=== PATIENT | female | born 1980 | race Caucasian/White ===

== ENCOUNTER 2020-02-10 09:26 | Emergency (ER) | payer BC, SELFPAY ==
[2020-02-10 09:36] VITALS: BP 116/67; PULSE 68; RESP 16; TEMP 36.9; O2SAT 100; BMI 24.7
--- NOTE | 2020-02-10 10:01 | CT_ITS ---
EXAMINATION: CT HEAD WITHOUT CONTRAST CLINICAL INFORMATION: Right-sided headaches x1 year. Sinus pressure. COMPARISON: None TECHNIQUE: Contiguous axial imaging was performed from the skull base to vertex without intravenous administration of contrast. This CT examination was performed using dose optimization techniques as appropriate, variously including the following: *Automated exposure control *Adjustment of mA and/or kV according to patient size (this includes techniques or standardized protocols for targeted exams where dose is matched to indication/reason for exam; i.e. extremities or head) *Use of iterative reconstruction technique DLP: 627 mGy-cm FINDINGS: There is no evidence of acute intracranial hemorrhage or territorial infarction. No abnormal mass effect or midline shift is seen. Garcia to white matter differentiation is well preserved. No extra-axial fluid collections are identified. The ventricles are normal in size. There is no abnormal attenuation within the brain parenchyma. The osseous structures and soft tissues are normal. The mastoid air cells and visualized portions of the paranasal sinuses are well aerated. CT/CT head/brain wo con IMPRESSION: No acute intracranial process seen.
--- NOTE | 2020-02-10 10:03 | ED_ITS ---
HPI - Headache General Chief Complaint: Headache Stated Complaint: headache Time Seen by Provider: 02/10/20 09:54 Source: patient Mode of arrival: ambulatory History of Present Illness HPI Narrative: 39-year-old female with a past medical history of a root canal 1 month ago presented to ED complaining of continued right sided headache x1 year, worsening since most recent root canal, with associated right-sided jaw/facial/and sinus pain. Also reports intermittent visual changes when headache is intense. Reports saw her dentist recently who took x-rays, without abnormalities, and is finishing course of Zithromax today without improvement. Dentist sent patient to ED for MRI. Denies nausea/vomiting, head trauma, does not take anticoagulation, numbness/tingling, weakness, fever, CP/SOB MD elicited complaint: headache Location: right Related Data Previous Rx's Medication Instructions Recorded [id number]-[id number]-[id number] 1 cap PO Q4-6H PRN #14 cap 02/10/20 [Fioricet] Allergies Allergy/AdvReac Type Severity Reaction Status Date / Time mold [MOLD] Allergy Severe UNKNOWN Verified 02/10/20 09:39 pollen extracts [POLLEN] Allergy Severe ITCHING Verified 02/10/20 09:39 Sulfa (Sulfonamide Allergy Severe HIVES Verified 02/10/20 09:39 Antibiotics) [SULFA (SULFONAMIDE ANTIBIOTICS)] Review of Systems Review of Systems: Constitutional: No Weight loss, No Fever, No Chills ENT/Mouth: No Hearing loss, No Ear Pain, +Nasal Congestion, + Sinus Pain, No Hoarseness, No sore throat, No Swallowing Difficulty Eyes: +R Eye Pain, No Swelling, No Discharge, No Vision Changes at present Cardiovascular: No Chest Pain, No SOB Respiratory: No Cough, No Sputum, No Wheezing, No Smoke Exposure, No Dyspnea Gastrointestinal: No Nausea, No Vomiting, No Diarrhea, No Constipation, No Abdom inal pain Musculoskeletal: No joint pain, No Myalgias, No Joint Swelling Skin: No Skin Lesions, No rash Neuro: No Weakness, +R sided facial pain/intermittent numbness, No Paresthesias, No Loss of Consciousness, No Dizziness, + Headache Yes all other systems are reviewed and are negative Neurologic: Denies Sensory deficit (Neuro) [facility] Past Medical History Attestation statement: The following information was validated with the patient. Social History Social History Alcohol intake: never Smoked in Last 30 Days: No Use of substances other than those prescribed or required for medical reasons: No Advance Directives: No Advance Directives Information Provided: No Physical Exam Vital Signs: Vital Signs: Last Vital Signs Temp 98.0 F 02/10/20 11:26 Pulse 56 02/10/20 11:26 Resp 18 02/10/20 11:26 BP 98/61 02/10/20 11:26 Pulse Ox 99 02/10/20 11:26 Body Mass Index 24.7 Const: General: cooperative and healthy appearing Orientation/consciousness: patient oriented x3 Limitations: no limitations HENMT: Other: + right-sided TMJ/temporal tenderness Head: Yes normal to inspection Ears: hearing grossly normal bilaterally and TM's normal bilaterally General nose exam: Normal external nose present Face and sinus: Yes normal facial exam and Yes face symmetric Mouth: Normal oral and palatal mucosa present and moist mucous membranes Teeth and gingiva: dentition normal Throat: Yes posterior oropharynx normal and Yes uvula midline Eyes: General: appearance normal, both eyes and all related structures Pupils: Equal, round and reactive pupils present EOM: EOMs intact bilaterally Neck: Neck: Yes normal visual inspection, Yes full ROM and Yes no meningeal signs Resp: Effort & Inspection: normal respiratory effort Cardio: Rate: regular rate GI: Inspection: Yes normal to inspection Skin: Rashes: no rashes Wounds: no wounds Neuro: General: patient oriented x3, gait normal, tone normal, moves all ex tremities, no meningeal signs, no focal motor deficits and CN's II-XI intact bilaterally Cranial nerves: Yes Equal, round and reactive pupils present Cognition (Neuro): normal cognition Gait exam (Neuro): Normal gait present Motor exam (neuro): 5/5 motor strength present throughout Sensory Exam: No Sensory deficit (Neuro) Coordination: [id number] test normal Extrem: General: Yes normal to inspection Course Course Course Narrative: -labs and head CT unremarkable Patient refusing IV medications in the ED. Discussed with patient follow-up with her dentist/neurology/PCP for further workup outpatient. Worsening signs and symptoms and strict return precautions discussed. Patient verbalized understanding of feel safe for discharge home MDM - Headache MDM Narrative Medical decision making narrative: 39-year-old female with a past medical history of a root canal 1 month ago presented to ED complaining of continued right sided headache x1 year, worsening since most recent root canal, with associated right-sided jaw/facial/and sinus pain. On exam VSS, NAD/well- appearing, no focal neuro deficits, no signs of active infection. Likely migraine headache vs ? Root canal complication vs TMJ. Low concern for CVA/GCA Plan: Labs, head CT to rule out mass, symptomatic therapy, reassess Lab Data Result diagrams: 02/10/20 10:25 02/10/20 10:25 Labs: Lab Results 02/10/20 02/10/20 02/10/20 Range/Units 10:25 10:25 10:25 WBC 4.6 L (4.8-10.8) X10*3/uL RBC 4.39 (4.20-5.50) X10*6/uL Hgb 13.9 (12.0-16.0) g/dl Hct 41.8 (37-47) % MCV 95.2 (80-98) fL MCH 31.7 (27.0-33.0) pg MCHC 33.3 (31.0-35.0) g/dl RDW 11.5 (11.0-16.0) % Plt Count 187 (160-400) X10*3/uL MPV 10.8 (9.4-12.3) fL Immature Gran % (Auto) 0.0 (0.0-0.4) % Neut % (Auto) 54.8 (45-73) % Lymph % (Auto) 35.2 (20-40) % [place] % (Auto) 7.6 (2-11) % Eos % (Auto) 2.0 (0-4) % Baso % (Auto) 0.4 (0-2) % Lymph # (Auto) 1.6 (1.2-4.9) X10*3/uL [place] # (Auto) 0.4 (0.1-1.2) X10*3/uL Eos # (Auto) 0.1 (0.0-0.4) X10*3/uL Baso # (Auto) 0.0 (0.0-0.2) X10*3/uL Abs Immat Gran (auto) 0.00 (0.00-0.03) X10*3/uL Absolute Neuts (auto) 2.5 (2.0-8.3) X10*3/uL Absolute Nucleated RBC 0.000 (0.0-0.012) X10*3/uL Nucleated RBC % (auto) 0.0 (0.0-0.2) /100WBC Hold Blue Top SEE NOTE Sodium 139 (135-145) mmol/L Potassium 4.5 (3.3-5.1) mmol/l Chloride 104 (96-108) mmol/L Carbon Dioxide 28 (22-29) mmol/L Anion Gap 12 (12-20) BUN 15 (9-16) mg/dL Creatinine 0.84 (0.5-1.4) mg/dL Estim Creat Clear Calc 79.8 Estimated GFR > 60 Random Glucose 80 (60-115) mg/dL Calcium 8.9 (8.4-10.2) mg/dL Discharge Plan Discharge Clinical Impression: Headache Patient Disposition: Home, Self-Care Instructions: Acute Headache (ED) Additional Instructions: Your blood work and head CT were unremarkable today in the ED You to follow-up with your dentist and PCP for further workup outpatient You can also follow-up with a neurologist Care set is headache medication, take as needed If her symptoms persist or worsen, you have fever, constant worsening vision changes, nausea/vomiting, or weakness return to the ED Prescriptions: New riuhuqnyul-qgrzyhqigrcbl-mjnn [Fioricet] 50-300-40 mg capsule 1 cap PO Q4-6H PRN (Reason: pain) Qty: 14 RF: 0 Referrals: Mark Alberto MD [Physician] - 1 week Alejandra Gross MD [Primary Care Provider] - 2 days (And your dentist)
[2020-02-10] MEDS: Butalb/Acetamin/Caff 50/325/40 TABLET 1 TAB PO (10:30)
[2020-02-10 10:32] LABS: MANUAL DIFF FLAG NO
--- NOTE | 2020-02-10 10:32 | PC.NURSE ---
rn went to place iv for patient to receive meds/draw abs. pt stated she did not want iv, would like to just have labs drawn and take po meds. pa informed or above. ok for pt to just have lab work and take fiorocet po.
[2020-02-10 10:34] LABS: Basophils Percent Auto 0.4 % (0-2); Eosinophils Absolute Auto 0.1 X10*3/uL (0.0-0.4); Hematocrit 41.8 % (37-47); Hemoglobin 13.9 g/dl (12.0-16.0); Lymphocytes Absolute Auto 1.6 X10*3/uL (1.2-4.9); Lymphocytes Percent Auto 35.2 % (20-40); Mean Corpuscular HGB Conc 33.3 g/dl (31.0-35.0); Mean Corpuscular Hemoglobin 31.7 pg (27.0-33.0); Mean Corpuscular Volume 95.2 fL (80-98); Mean Platelet Volume 10.8 fL (9.4-12.3); Monocytes Absolute Auto 0.4 X10*3/uL (0.1-1.2); Monocytes Percent Auto 7.6 % (2-11); Neutrophils Absolute Auto 2.5 X10*3/uL (2.0-8.3); Neutrophils Percent Auto 54.8 % (45-73); Platelet Count 187 X10*3/uL (160-400); Red Blood Count 4.39 X10*6/uL (4.20-5.50); Red Cell Distribution Width 11.5 % (11.0-16.0); White Blood Count 4.6 X10*3/uL (4.8-10.8)
[2020-02-10 11:05] LABS: Anion Gap 12 (12-20); Blood Urea Nitrogen 15 mg/dL (9-16); Calcium 8.9 mg/dL (8.4-10.2); Carbon Dioxide 28 mmol/L (22-29); Chloride 104 mmol/L (96-108); Creatinine Clr Calc Pharmacy 79.8; Estimated Glomerular Filt Rate > 60; Glucose Random 80 mg/dL (60-115); Potassium 4.5 mmol/l (3.3-5.1); Sodium 139 mmol/L (135-145)
[2020-02-10 11:26] VITALS: BP 98/61; PULSE 56; RESP 18; TEMP 36.7; O2SAT 99
== END 2020-02-10 11:33 | disposition home or self-care (01) ==
PROVIDERS: Physician Assistant; Emergency Provider Emergency Medicine; PCP Internal Medicine
DX: R51.9 Headache, unspecified (principal); Z20.828 Contact with and (suspected) exposure to other viral communicable diseases
CPT/HCPCS: 36415; 70450; 80048; 85025; 96361; 96374; 96375; 99284; U0003

== ENCOUNTER 2020-04-26 08:21 | Outpatient (REF) | payer BC, SELFPAY | END 2020-04-26 08:22 | disposition home or self-care (01) | LOC: HO.LAB 08:21 | PROVIDERS: PCP Internal Medicine; Visit Provider Internal Medicine | DX: Z20.822 Contact with and (suspected) exposure to COVID-19 (principal) | CPT/HCPCS: 36415; C9803; U0003; U0005 ==